=== PATIENT | female | born 1960 | race Caucasian/White ===

== ENCOUNTER 2020-02-28 07:52 | Outpatient (CLI) | payer BC, OTHER ==
[2020-02-28 19:03] LABS: SARS-CoV-2 MS2 Positive; SARS-CoV-2 N Gene Negative; SARS-CoV-2 S Gene Negative; SARS-CoV-2 by NAA Not Detected (NotDetected); SARS-CoV-2 orf1ab Negative
== END 2020-02-28 07:53 | disposition home or self-care (01) ==
LOC: LABBT 07:52
PROVIDERS: ATTEND Internal Medicine Gastroenterology
DX: Z20.828 Contact with and (suspected) exposure to other viral communicable diseases (principal)
CPT/HCPCS: 87635; U0003

== ENCOUNTER 2020-03-01 07:04 | Day surgery (SDC) | payer BC ==
[2020-02-29 08:55] VITALS: BMI 21.4
--- NOTE | 2020-03-01 10:36 | OP ---
DATE OF PROCEDURE: 03/01/2020 PREPROCEDURE DIAGNOSIS: Colorectal cancer screening, average risk. POSTPROCEDURE DIAGNOSIS: Normal colonoscopy. ANESTHESIA: TIVA. PROCEDURE IN DETAIL: After the patient was informed of the risks, benefits, and possible complications of endoscopy including perforation, bleeding, reaction to medication, and aspiration, informed consent was obtained. The patient was brought to the endoscopy suite where she was sedated in gradual fashion. Once she was comfortable, a rectal examination was performed, which was normal. The endoscope was advanced from the anal canal through the colon to the cecum, which was identified by ileocecal valve and appendiceal orifice. The scope was then slowly removed. The prep was very good. The right colon was viewed in forward and retroflexed views. The scope was slowly removed from the colon with good circumferential visualization behind folds and flexures. No polyps or masses were seen. Retroflexed views in the rectum were normal. The scope was removed. The patient tolerated the procedure well. There were no complications. RECOMMENDATIONS: Repeat colonoscopy in 10 years for screening purposes. Follow up in my office as needed. Job ID: [id number]
[2020-03-01] MEDS ORDERED: PROPOFOL 200 MG/20 ML VIAL ONE (11:40)
== END 2020-03-01 11:28 | disposition home or self-care (01) ==
LOC: SDC 07:04
PROVIDERS: ATTEND Internal Medicine Gastroenterology
PROC: 0DJD8ZZ Inspection of Lower Intestinal Tract, Via Natural or Artificial Opening Endoscopic (ICD-10-PCS; principal; 2020-03-01)
DX: Z12.11 Encounter for screening for malignant neoplasm of colon (principal); I11.0 Hypertensive heart disease with heart failure; I50.9 Heart failure, unspecified; I25.10 Atherosclerotic heart disease of native coronary artery without angina pectoris; E78.5 Hyperlipidemia, unspecified; E78.00 Pure hypercholesterolemia, unspecified; Z79.82 Long term (current) use of aspirin; Z79.899 Other long term (current) drug therapy; Z01.812 Encounter for preprocedural laboratory examination; Z20.828 Contact with and (suspected) exposure to other viral communicable diseases
CPT/HCPCS: J2704